=== PATIENT | female | born 1945 | race Caucasian/White ===

== ENCOUNTER 2019-08-01 06:00 | Inpatient (IN) | payer OTHER ==
[2019-07-24 13:05] LABS: HEMATOCRIT 39.1 % (37.0-47.0); HEMOGLOBIN 12.8 gm/dL (12.0-15.0); MCH 30.9 pg (26.0-34.0); MCHC 32.8 g/dL (28.0-37.0); MCV 94.2 fL (80.0-100.0); RBC 4.15 mil/uL (4.20-5.00); RDW 13.8 % (10.5-14.5); WBC 5.7 thou/uL (4.0-11.0)
[2019-07-24 13:11] LABS: ALBUMIN 3.8 g/dL (3.4-5.0); CALCIUM 9.5 mg/dL (8.5-10.1); CREATININE 0.8 mg/dL (0.6-1.0); POTASSIUM 4.2 mmol/L (3.5-5.1); PROTIME 10.3 Seconds (9.3-11.4)
[2019-07-24 13:12] LABS: URINE BILIRUBIN NEGATIVE (Negative); URINE BLOOD NEGATIVE (Negative); URINE CLARITY CLEAR; URINE COLOR YELLOW; URINE GLUCOSE-RANDOM* NEGATIVE (Negative); URINE KETONES NEGATIVE (Negative); URINE LEUKOCYTES-REFLEX NEGATIVE (Negative); URINE NITRITE-REFLEX NEGATIVE (Negative); URINE PROTEIN (DIPSTICK) NEGATIVE (Negative); URINE SPECIFIC GRAVITY <= 1.005 (1.005-1.035); URINE UROBILINOGEN 0.2 E.U./dl (0.2-1.0)
[~2019-08-01] VITALS: Ht 165.1 cm; Wt 58.5 kg
[~2019-08-01 06:00] MED LIST: CALCIUM 600 +1 EAC1 PO; CO Q-10100 MG PO; CULTURELLE PRO1 EACH PO; FISH OIL 1,2001 EAC4 PO; FLAX SEED OIL1000 MG PO; LUMITENE30 MG PO; LUTEIN-ZEAXANT1 EACH PO; PRAVACHOL40 MG PO; SUPER B WITH V1 EAC1 PO; TIMOLOL GL0.5 %/5 M1 OPHTHALMIC; VAGIFEM10 MCG VAG; VITAMIN D1000 UNI1 PO; XALATAN2.5 ML OPHTHALMIC
[2019-08-01 06:30] VITALS: BP 135/67
[2019-08-01 11:30] VITALS: BP 138/76
--- NOTE | 2019-08-01 13:17 | NUR ---
74 YO FEMALE TRANSFERED FROM PACU TO 448. A&OX4. IV INTACT IN L HAND. DRSG TO R KNEE WITH MEGAN DRSG AND POLAR PACK SECURED WITH JAYLA WRAP.VSS. SPOUSE AT BEDSIDE. IV FLUIDS STARTED, IV MORPHINE GIVEN ORDERED.
[2019-08-01 15:11] VITALS: BP 135/67
[2019-08-01 15:43] VITALS: BP 108/63
--- NOTE | 2019-08-01 16:41 | NUR ---
ASSESSMENT-PT LIVES IN A HOUSE WITH HER SPOUSE. PT HAS 2 STEPS TO ENTER THEN ALL OF HER NEEDS CAN BE MET ON THE MAIN LEVEL. PT INDEPENDENT PRIOR TO SURGERY. PT NEDS A ROLLER WALKER FOR HOME LATER TODAY. OFFERED OPTIONS AND SHE CHOSE [employer]. NOTIFIED [employer] LIASION TO ISSUE PT A ROLLER WALKER FOR HOME THIS AFTERNOON. PT HAS HER OUTPT APPT SET-UP FOR SAT [facility] [address].. NO OTHER DC NEEDS IDENTIFIED AT THIS TIME.
--- NOTE | 2019-08-06 11:04 | O ---
[facility] [place] [address] OPERATIVE REPORT Name: RAUL BANKS Room #: 448-P [facility] IN M.R.#: [id number] Admission: 08/01/19 Attend Phys: Patricio Pardo MD Discharge: 08/01/19 Date of : 49 Report #: [id number] THIS REPORT FOR: //name// CC: Cooper Pardo DATE OF SERVICE: 08/01/2019 PREOPERATIVE DIAGNOSIS: Right knee medial compartment osteoarthritis. POSTOPERATIVE DIAGNOSIS: Right knee medial compartment osteoarthritis. PROCEDURE: Right medial compartment knee arthroplasty using Navio robotic assistance. SURGEON: Patricio Pardo MD TURN DOWN ATTENDANT: Soha Patel PA-C. INDICATIONS FOR TURN DOWN ATTENDANT: Throughout the case, extensive retraction and manipulation of knee was required. This was afforded to me by my triage assistant. ANESTHESIA: LMA with an adductor canal block. IMPLANTS: [employer]hew size 4 Oxinium Journey II medial femoral component, a size 1 tibia and a size 8 polyethylene. TOURNIQUET TIME: 48 minutes. ESTIMATED BLOOD LOSS: 25 mL. SPECIMENS: None. SPECIMENS: None. CONDITION UPON LEAVING THE OPERATING ROOM: Stable. INDICATIONS FOR PROCEDURE: The patient is a 74-year-old female with severe medial compartment right knee osteoarthritis. She had failed conservative measures for this and after discussion with her, she elected for right unicompartmental knee arthroplasty. DESCRIPTION OF PROCEDURE: Risks, benefits, alternatives, complications were discussed in detail with the patient including but not limited to risk of anesthesia, risk of damage to nerves, arteries, blood vessels, risk for infection, bleeding, risk for continued knee pain, need for reoperation. [facility] [address] [place] [address] OPERATIVE REPORT Name: RAUL BANKS Room #: 448-P [facility] IN M.R.#: [id number] Admission: 08/01/19 Attend Phys: Patricio Pardo MD Discharge: 08/01/19 Date of : 49 Report #: [id number] Informed consent was obtained from the patient. The right knee was appropriately marked in the preoperative holding area. IV Ancef was given for preoperative antibiotics. Adductor canal block was placed by Anesthesia. She was brought to the operating room and placed in supine position on operating room table. LMA anesthesia was induced without complication. Tourniquet was placed on the right thigh. Right lower extremity was prepped and draped in normal sterile fashion. Timeout was performed properly identifying the patient and procedure as well as instrumentation. All in the operating room were in agreement. Right lower extremity was exsanguinated, tourniquet was inflated. Tourniquet time was 48 minutes. Standard medial approach to the knee was made with 10 blade through the skin. Dissection was taken down sharply to the fascia and deep flaps were developed medially and laterally. Fresh 10 blade was used to make a medial parapatellar arthrotomy and the knee was inspected. There was severe medial compartment osteoarthritis. Lateral compartment was well maintained. Patellofemoral compartment was well maintained. ACL was intact. It was decided to proceed with medial compartment arthroplasty. Reference pins were then placed in the femur and the tibia and the knee was digitally mapped using the Track the Bet robotic system. We sized the size 4 femur, 1 tibia and a 9 spacer. After acceptance of the intraoperative plan, the femoral and tibial resections were made with a Navio bur. Tibial resection was cleaned up with a rasp and tibia was sized, found to be a size 1 and size 1 tibial trial was pinned and drilled and size 4 femoral trial was then placed and this was then trialed with a size 9 polyethylene. Knee was taken through range of motion, found to be stable, actually was somewhat tight medially throughout range of motion. This was then trialed with a size 8 and found to have an mm to mm and a half laxity throughout range of motion and it was felt to be acceptable. After this, trial components were removed. Bony ends were thoroughly irrigated with normal saline. A final size 1 ____ size 4 Oxinium medial femoral component were cemented in place using standard cementation techniques. While the cement cured, a periarticular injection consisting of morphine, ropivacaine, epinephrine and Toradol was placed around the knee joint capsule. After the cement cured, tourniquet was deflated. Hemostasis was obtained with Bovie cautery. A final size 8 polyethylene was placed. A gram of vancomycin was placed deep in the joint. Fascia was closed with 0 Vicryl, skin was closed with 2-0 Vicryl, 3-0 Monocryl. Dermabond and a MEGAN dressing was applied. The patient tolerated this procedure well and went to recovery room under care of anesthesia postoperatively. <ELECTRONICALLY SIGNED> By: Patricio Pardo MD 08/06/19 1104 [id number] Patricio Pardo MD /sebastian
== END 2019-08-01 18:21 | disposition home or self-care (01) | DRG 470 ==
LOC: TBA 06:00 → PRE 06:59 → 4S 11:07 → PRE 11:59 → 4S 18:21
PROVIDERS: ADMIT Orthopaedic Surgery
DX: M17.11 Unilateral primary osteoarthritis, right knee (principal)
CPT/HCPCS: 10102; 50010; 50101; 50415; 50954; 51130; 51225; 51320; 52001; 52282; 53078; 53370; 54118; 56527; 56528; 57095; 57103; 57110; 57127; 57180; 62110; 62900; 64039; 70005